=== PATIENT | female | born 1960 | race African-American/Black ===

== ENCOUNTER → 2017-04-04 | Outpatient (CLI) | payer BC ==
[~2017-04-04] MED LIST: ADVAIR IH; AFRIN 15 ML15 ML NS; COMBIVENT INH14.7 GM IH; DIOVAN/HCT 12.51 TAB PO; IPRATROPIUM BROM3 M1 IH; NASACORT AQ N16.5 GM NS; PREDNISONE20 MG PO; SINGULAIR10 MG PO; VOLTAREN 75 DR75 MG PO; XOPENEX 3 ML3 M1 IH; ZITHROMAX 250M250 MG PO
== END ==
LOC: MC.RAD 08:20
DX: Z12.31 Encounter for screening mammogram for malignant neoplasm of breast (principal)

== ENCOUNTER → 2017-05-28 | Outpatient (CLI) | payer BC | LOC: ZCOL.LAB 16:54 | DX: R42 Dizziness and giddiness (principal); R07.9 Chest pain, unspecified ==

== ENCOUNTER → 2018-05-13 | Outpatient (CLI) | payer BC | LOC: MC.RAD 14:20 | DX: Z12.31 Encounter for screening mammogram for malignant neoplasm of breast (principal) ==

== ENCOUNTER → 2019-06-03 | Outpatient (CLI) | payer OTHER | LOC: MC.RAD 07:00 | DX: Z12.31 Encounter for screening mammogram for malignant neoplasm of breast (principal) ==

== ENCOUNTER → 2020-06-09 | Outpatient (CLI) | payer BC | LOC: MC.RAD 07:22 | DX: Z12.31 Encounter for screening mammogram for malignant neoplasm of breast (principal); N63.20 Unspecified lump in the left breast, unspecified quadrant ==

== ENCOUNTER → 2021-06-27 | Outpatient (CLI) | payer BC | LOC: MC.RAD 06:52 | DX: Z12.31 Encounter for screening mammogram for malignant neoplasm of breast (principal) ==

== ENCOUNTER → 2022-07-04 | Outpatient (CLI) | payer BC | LOC: MC.RAD 07:46 | DX: Z12.31 Encounter for screening mammogram for malignant neoplasm of breast (principal) ==

== ENCOUNTER → 2022-12-08 | Outpatient (CLI) | payer BC | LOC: COL.RAD 06:50 | DX: Z12.2 Encounter for screening for malignant neoplasm of respiratory organs (principal); F17.290 Nicotine dependence, other tobacco product, uncomplicated ==

== ENCOUNTER → 2023-09-12 | Outpatient (CLI) | payer BC ==
[~2023-09-12] MED LIST changes: +RT ALBUTER2.5 MG/0.5 IH
== END ==
LOC: CANSCHCLI → MC.RAD 07:07
DX: Z12.31 Encounter for screening mammogram for malignant neoplasm of breast (principal)

== ENCOUNTER 2024-03-12 22:07 | Emergency (ER) | payer BC ==
[~2024-03-12] VITALS: Ht 160 cm; Wt 68.2 kg
[2024-03-12 22:09] VITALS: TEMP 97.7
[2024-03-12] MEDS ORDERED: methylPREDNISolone Sod Succ 125 MG/2 ML VIAL IV ONE (22:30)
[2024-03-12] MEDS ORDERED: Albuterol/Ipratropium 3 MG-0.5 MG/3 ML Neb Soln IH ONE (22:30)
[2024-03-12] MEDS ORDERED: predniSONE 20 MG TAB PO ONE (22:30)
[2024-03-12 23:50] VITALS: BP 119/76; PULSE 126
== END 2024-03-12 23:50 | disposition home or self-care (01) ==
LOC: COL.ER 22:07
DX: J45.909 Unspecified asthma, uncomplicated (principal)
CPT/HCPCS: J7512

== ENCOUNTER → 2024-10-01 | Outpatient (CLI) | payer BC | LOC: MC.RAD 08:01 | DX: Z12.31 Encounter for screening mammogram for malignant neoplasm of breast (principal) ==